=== PATIENT | female | born 1960 | race African-American/Black ===

== ENCOUNTER → 2016-05-26 | Outpatient (CLI) | payer OTHER ==
[~2016-05-26] MED LIST: IOHEXOL 300 MG/ML 75 ML VIAL. IV ONE
--- NOTE | 2016-05-26 13:16 | RAD ---
Indication abnormal ultrasound exam. Contrast imaging through the neck was performed. Approximately 75 cc of Omnipaque 300 was administered intravenously. Images were reformatted in the coronal and sagittal planes. Note is made of an ultrasound examination of the neck 04/28/2016 and its accompanying report The lung apices are clear. The thyroid appears unremarkable. Submandibular glands appear unremarkable. There is mild adenopathy seen in the neck which is nonspecific but probably incidental. A dominant soft tissue mass is not seen. Acute finding is not apparent. The visualized brain appears unremarkable and the visualized paranasal sinuses appear unremarkable. There is diminished aeration of the mastoid air cells. This is likely incidental. IMPRESSION: There is mild adenopathy in the neck. This is likely incidental. Definite pathologic adenopathy is not seen. An acute finding or dominant soft tissue mass in the neck is not seen PQRS Compliance Statement: One or more of the following individualized dose reduction techniques were utilized for this examination: 1. Automated exposure control 2. Adjustment of the mA and/or kV according to patient size 3. Use of iterative reconstruction technique
== END | disposition home or self-care (01) ==
LOC: CT 11:20
PROVIDERS: ATTEND Nurse Practitioner Family
DX: R93.8 Abnormal findings on diagnostic imaging of other specified body structures (principal); R59.0 Localized enlarged lymph nodes; M54.2 Cervicalgia
CPT/HCPCS: 70491

== ENCOUNTER → 2016-06-16 | Outpatient (CLI) | payer OTHER ==
--- NOTE | 2016-06-16 11:04 | RAD ---
DATE: 06/16/2016 EXAM: DIGITAL SCREEN BILAT W/CAD HISTORY: Screening study. COMPARISON: None This study was interpreted with the benefit of Computerized Aided Detection (CAD). FINDINGS: Digital MLO and CC mammograms of both breasts were obtained. The patient's mammograms were performed over 10 years ago somewhere in [place] and are unavailable for comparison. The breast parenchyma is composed of scattered fibroglandular densities which can obscure a lesion on mammography (breast density code B). Benign-appearing and vascular calcifications are seen within both breasts. No spiculated mass is seen. No malignant appearing calcification or area of architectural distortion is noted. IMPRESSION: BI-RADS Category 1, negative. There is no mammographic evidence of malignancy. Routine yearly screening mammography is recommended for follow-up. BI-RADS CATEGORY: 1 NEGATIVE RECOMMENDED FOLLOW-UP: 12M 12 MONTH FOLLOW-UP PQRS compliance statement: Patient information was entered into a reminder system with a target due date 06/16/2017 for the next mammogram. Mammography is a sensitive method for finding small breast cancers, but it does not detect them all and is not a substitute for careful clinical examination. A negative mammogram does not negate a clinically suspicious finding and should not result in delay in biopsying a clinically suspicious abnormality. "Our facility is accredited by the [employer] Mammography [employer]."
== END | disposition home or self-care (01) ==
LOC: MAMMO 09:20
PROVIDERS: ATTEND Nurse Practitioner Family
DX: Z12.31 Encounter for screening mammogram for malignant neoplasm of breast (principal)
CPT/HCPCS: G0202; 77067

== ENCOUNTER → 2019-02-14 | Outpatient (CLI) | payer MEDICAID ==
--- NOTE | 2019-02-14 14:09 | RAD ---
WRIST 3V LEFT DATE: 02/14/2019 12:00 AM INDICATION: Left wrist pain, injury 5 months ago COMPARISON: None. FINDINGS: Bones: There is no evidence of acute fracture or dislocation. Joints: The joint spaces are normal. Miscellaneous: None. IMPRESSION: Normal exam Electronically signed by: Alexis Jack MD (02/14/2019 2:06 PM) [id number]
== END | disposition home or self-care (01) ==
LOC: PMG 11:50
PROVIDERS: ATTEND Physician Assistant Medical
DX: M25.532 Pain in left wrist (principal)
CPT/HCPCS: 73110

== ENCOUNTER 2020-06-25 02:35 | Emergency (ER) | payer OTHER ==
[~2020-06-25] VITALS: Ht 165.1 cm; Wt 107.7 kg
--- NOTE | 2020-06-25 02:49 | PHYS DOC ---
Adult General HPI HPI Patient is a 60-year-old female with a past medical history significant for seasonal allergies who presents to the emergency department with 2 days of shortness of breath with productive cough, nasal congestion, watery and itchy eyes. Denies any recent travel, illnesses, fevers, known ill contacts, other Covid/flu/cold symptoms. Denies any chest pain, abdominal pain, nausea, vomiting, diarrhea, dysuria, hematuria or blood in the stool. Review of Systems Review of Systems Review of systems otherwise unremarkable except noted in HPI Allergies Allergies Allergies Coded Allergies Type Severity Reaction Last Updated Verified No Known Drug Allergies 05/26/16 No Physical Exam Physical Exam Constitutional: Well developed, well nourished, no acute distress, non-toxic appearance. [] HENT: Normocephalic, atraumatic, bilateral external ears normal, oropharynx moist, no oral exudates, nose normal. [] Eyes: conjunctiva normal, no discharge. [] Neck: Normal range of motion, no tenderness, supple, no stridor. [] Cardiovascular:Heart rate regular rhythm, no murmur [] Lungs & Thorax: Bilateral breath sounds clear to auscultation [] Abdomen: soft, no tenderness, no masses, no pulsatile masses. [] Skin: Warm, dry, no erythema, no rash. [] Back: No tenderness Extremities: No tenderness, ROM intact, no edema. [] Neurologic: Alert and oriented X 3, normal motor function, normal sensory function, no focal deficits noted. [] Psychologic: Affect normal, judgement normal, mood normal. [] EKG EKG Rate of 75, QRS of 78, QTc of 420, no STEMI [] Radiology/Procedures Radiology/Procedures []tudy: XR CHEST 1V Indication: Shortness of air. Comparison: 10/11/2015 Findings: Unremarkable cardiomediastinal silhouette and bre. No confluent infiltrate, layering effusion or pneumothorax. Impression: No acute radiographic abnormality of the chest. Electronically signed by: NICOLE MONIQUE MD (06/25/2020 3:25 AM) [facility] Heart Score C/O Chest Pain: No Risk Factors: Risk Factors: DM, Current or recent (<one month) smoker, HTN, HLP, family history of CAD, obesity. Risk Scores: Risk Factors: DM, Current or recent (<one month) smoker, HTN, HLP, family history of CAD, obesity. Course & Med Decision Making Course & Med Decision Making Patient is a 60-year-old female who presents with 2 days of productive cough with shortness of breath, nasal congestion, watery and itchy eyes and seasonal allergies Vital signs not concerning. Physical exam noted above. EKG noted above and not concerning. Chest x-ray not concerning. Patient given albuterol treatment and inhaler, guaifenesin and Benadryl for seasonal allergy symptoms. Discussed management of seasonal allergies at home. Advised to follow-up with primary care physician as soon as she can to update on ED visit and discuss further seasonal allergy management. Gave strict return precautions to the ED. Patient grateful, verbalized understanding and agreed with plan of discharge. [] Dragon Disclaimer Dragon Disclaimer This electronic medical record was generated, in whole or in part, using a voice recognition dictation system. Departure Departure: Impression: Primary Impression: Seasonal allergies Additional Impressions: Itchy, watery, and red eye Dry cough Disposition: 01 HOME / SELF CARE / HOMELESS Condition: GOOD Referrals: BERNADINE DEL CID (PCP) Patient Instructions: Allergic Conjunctivitis, Allergic Rhinitis, Allergies, Generic Additional Instructions: Please read all of the attached information carefully. As discussed you can use [id number] allergy medications including oral and nasal sprays for your symptoms. Please call your primary care physician first thing in the morning to set up a follow-up as soon as possible to discuss further/chronic treatment for your seasonal allergies. Please come back to the emergency department immediately with new or concerning symptoms as discussed. Problem Qualifiers MANJU CROUCH MD Jun 25, 2020 02:49
--- NOTE | 2020-06-25 03:28 | RAD ---
Study: XR CHEST 1V Indication: Shortness of air. Comparison: 10/11/2015 Findings: Unremarkable cardiomediastinal silhouette and bre. No confluent infiltrate, layering effusion or pne umothorax. Impression: No acute radiographic abnormality of the chest. Electronically signed by: NICOLE MONIQUE MD (06/25/2020 3:25 AM) [facility]
[2020-06-25 03:31] LABS: BASO % 1 % (0-3); EOS # 0.4 x10^3/uL (0.0-0.7); EOS % 5 % (0-3); HEMOGLOBIN 11.2 g/dL (12.0-15.5); LYMPH # 4.1 x10^3/uL (1.0-4.8); LYMPH % 47 % (24-48); MEAN CORPUSCULAR HEMOGLOBIN 27 pg (25-35); MEAN CORPUSCULAR HGB CONC 33 g/dL (31-37); MEAN CORPUSCULAR VOLUME 81 fL (79-100); MONO # 0.6 x10^3/uL (0.0-1.1); MONO % 7 % (0-9); NEUT # 3.4 x10^3uL (1.8-7.7); NEUT % 40 % (31-73); PLATELET COUNT 299 x10^3/uL (140-400); RED BLOOD COUNT 4.17 x10^6/uL (3.50-5.40); RED CELL DISTRIBUTION WIDTH 13.2 % (11.5-14.5); WHITE BLOOD COUNT 8.6 x10^3/uL (4.0-11.0)
[2020-06-25 03:55] VITALS: BP 122/82
[2020-06-25 04:23] LABS: CALCIUM 8.6 mg/dL (8.5-10.1); GFR 68.2; POTASSIUM 3.8 mmol/L (3.5-5.1)
[2020-06-25 04:28] LABS: ALBUMIN 3.6 g/dL (3.4-5.0); TOTAL BILIRUBIN 0.2 mg/dL (0.2-1.0); TOTAL PROTEIN 7.3 g/dL (6.4-8.2)
[2020-06-25] MEDS ORDERED: diphenhydrAMINE HCL 25 MG CAPSULE PO ONE (04:45)
[2020-06-25] MEDS ORDERED: ALBUTEROL SULFATE 8GM INHALER. INH ONE (04:45)
[2020-06-25] MEDS ORDERED: guaiFENesin DM 200MG/20MG 10 ML SYRUP PO ONE (04:45)
[2020-06-25 04:46] LABS: BACTERIA,URINE 0 /HPF (0-FEW); BILIRUBIN,URINE NEG (NEG); CLARITY,URINE CLEAR; COLOR,URINE COLORLESS; GLUCOSE,URINE NEG (NEG); NITRITE,URINE NEG (NEG); RBC,URINE OCC /HPF (0-2); SQUAMOUS EPITHELIAL CELL,UR MOD /LPF; UROBILINOGEN,URINE 0.2 mg/dL (0.2 mg/dL); WBC,URINE OCC /HPF (0-4)
--- NOTE | 2020-06-25 06:13 | EKG ---
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
== END 2020-06-25 04:57 | disposition home or self-care (01) ==
LOC: ER 02:35
DX: J30.2 Other seasonal allergic rhinitis (principal); H57.89 Other specified disorders of eye and adnexa; R05 Cough
CPT/HCPCS: 36415; 71045; 80053; 81001; 84484; 85025; 93005; 94640; 99285; Q0163; 94664

== ENCOUNTER → 2021-01-21 | Outpatient (CLI) | payer OTHER ==
--- NOTE | 2021-01-21 17:08 | RAD ---
Bilateral digital screening mammogram: Reason for examination: Routine screening. Comparison is made to previous study dated 06/16/2016. Interpretation was made with the benefit of CAD. Findings: Breast density: Category B. There are scattered areas of fibroglandular density. There are no dominant masses, suspicious calcifications or architectural distortions. Impression: No evidence of malignancy. Recommend routine screening. BI-RADS Category 1: Negative. This patient's information has been entered into a reminder system for the patient to be notified wit h the results of her examination and a target date for the next mammogram. Electronically signed by: Suzanne Davis MD (01/21/2021 5:05 PM) [id number]
== END ==
LOC: MAMMO 12:39
PROVIDERS: ATTEND Physician Assistant Medical
DX: Z12.31 Encounter for screening mammogram for malignant neoplasm of breast (principal)
CPT/HCPCS: 77067